=== PATIENT | female | born 1990 | race Caucasian/White ===

== ENCOUNTER 2018-08-09 09:56 | Emergency (ER) | payer OTHER ==
[2018-08-09 11:03] LABS: URINE SOURCE CLEAN C
[2018-08-09 11:04] LABS: BASOPHILE ABSOLUTE 0.1 Th/cumm (0-0.2); EOSINOPHILE ABSOLUTE 0.1 Th/cmm (0.1-0.4); HEMATOCRIT 27.2 % (41.0-60); LYMPHOCYTE ABSOLUTE 1.4 Th/cmm (1.5-3.0); MEAN CORPUSCULAR HEMOGLOBIN 19.4 pg (27.0-31.0); MONOCYTE ABSOLUTE 0.3 Th/cmm (0.3-1.0); RED CELL DISTRIBUTION WIDTH 16.5 % (11.5-20.0)
--- NOTE | 2018-08-09 11:04 | ED Physician Chart ---
ED Chief Complaint/HPI - Patient Information Date Seen:: 08/09/18 Time Seen:: 10:30 Chief Complaint:: abdominal pain History of Present Illness:: this is a 27 yo female with epigastric tenderness, nausea, vomiting for 24 hrs. she is unsure whether she is . she denies any previous surgery or other illnesses. Allergies:: Allergies Allergy/AdvReac Type Severity Reaction Status Date / Time No Known Allergies Allergy Verified 08/09/18 10:17 Vitals:: Vital Signs - 8 hr 08/09/18 10:17 Temp 97.9 F HR 77 RR 18 BP 101/76 O2 Sat % 99 Historian:: Patient Review:: Nurse's Note Reviewed ED Review of Systems - Review of Systems General/Constitutional: No fever, No chills, No weight loss, Weakness, No diaphoresis, No edema, No loss of appetite Skin: No skin lesions, No rash, No bruising Head: No headache, No light-headedness Eyes: No loss of vision, No pain, No diplopia ENT: No earache, No nasal drainage, No sore throat, No tinnitus Neck: No neck pain, No swelling, No thyromegaly, No stiffness, No mass noted Cardio Vascular: No chest pain, No palpitations, No PND, No orthopnea, No edema Pulmonary: No SOB, No cough, No sputum, No wheezing GI: Nausea, Vomiting, No diarrhea, Pain, No melena, No hematochezia, No constipation, No hematemesis G/U: No dysuria, No frequency, No hematuria Musculoskeletal: No bone or joint pain, No back pain, No muscle pain Endocrine: No polyuria, No polydipsia Psychiatric: No prior psych history, No depression, No anxiety, No suicidal ideation Hematopoietic: No bruising, No lymphadenopathy Allergic/Immuno: No urticaria, No angioedema Neurological: No syncope, No focal symptoms, No weakness, No paresthesia, No headache, No seizure, No dizziness, No confusion, No vertigo ED Past Medical History - Past Medical History Obtainable: Yes Past Medical History: No significant medical hx Family History: None Social History: Non Smoker, No Alcohol, No Drug Use, Employed Surgical History: None Psychiatricy History: None Medication: Reviewed Family Medical History - Family Member Father Ethnicity: Living Status: Still Living Hx Family Hypertension: Yes ED Physical Exam - Physical Examination General/Constitutional: Awake, Well-developed, well-nourished, Alert, No distress, GCS 15, Non-toxic appearing, Ambulatory Head: Atraumatic Eyes: Lids, conjuctiva normal, PERRL, EOMI Skin: Nl inspection, No rash, No skin lesions, No ecchymosis, Well hydrated, No lymphadenopathy ENMT: External ears, nose nl, Nasal exam nl, Lips, teeth, gums nl Neck: Nontender, Full ROM w/o pain, No JVD, No nuchal rigidity, No bruit, No mass, No stridor Respiratory: Nl effort/Exclusion, Clear to Auscultation, No Wheeze/Rhonchi/Rales Cardio Vascular: RRR, No murmur, gallop, rubs, NL S1 S2 GI: No tenderness/rebounding/guarding (tenderness of the epigastric area.), No organomegaly, No hernia, Normal BS's, Nondistended, No mass/bruits, No McBurney tenderness : No CVA tenderness Extremities: No tenderness or effusion, Full ROM, normal strength in all extremities, No edema, Normal digits & nails Neuro/Psych: Alert/oriented, DTR's symmetric, Normal sensory exam, Normal motor strength, Judgement/insight normal, Mood normal, Normal gait, No focal deficits Misc: Normal back, No paraspinal tenderness ED Septic Shock - . Is Septic Shock (SBP<90, OR Lactate>4 mmol\L) present?: No - <6hrs of presentation: Vital Signs: Vital Signs - 8 hr 08/09/18 10:17 Temp 97.9 F HR 77 RR 18 BP 101/76 O2 Sat % 99
[2018-08-09 11:05] LABS: ALB/GLOB RATIO 1.1 (1.0-1.8); ALBUMIN 4.5 gm/dL (3.7-5.3); ALKALINE PHOSPHATASE 63 U/L (34-104); ANION GAP 16.3 (7.0-16.0); BILIRUBIN,TOTAL 0.5 mg/dL (0.3-1.0); BUN - UREA NITROGEN 16 mg/dL (7-25); CALCIUM SERUM 9.9 mg/dL (8.6-10.3); CARBON DIOXIDE 22.1 mEq/L (21.0-31.0); CHLORIDE 101 mEq/L (98-107); CREATININE - SERUM 0.8 mg/dL (0.6-1.2); GFR AFRICAN-AMERICAN > 60.0 ml/min (>90); GFR NON AFRICAN-AMERICAN > 60.0 ml/min; GLUCOSE 92 mg/dL (70-105); POTASSIUM SERUM 3.4 mEq/L (3.5-5.1); SGOT 16 U/L (13-39); SGPT/ALT 11 U/L (7-52); SODIUM SERUM 136 mEq/L (136-145); TOTAL PROTEIN,SERUM 8.5 gm/dL (6.0-8.3)
[2018-08-09 11:07] LABS: URINE BILIRUBIN NEGATIVE (NEGATIVE); URINE BLOOD NEGATIVE (NEGATIVE); URINE GLUCOSE (UA) NEGATIVE (NEGATIVE); URINE KETONE NEGATIVE (NEGATIVE); URINE LEUKOCYTE ESTERASE NEGATIVE (NEGATIVE); URINE NITRATE NEGATIVE (NEGATIVE); URINE PH 8.5 (4.6 - 8.0); URINE PROTEIN NEGATIVE (NEGATIVE); URINE UROBILINOGEN 0.2 E.U./dL (0.2 - 1.0)
[2018-08-09 11:14] LABS: % BASOPHILS 1.7 % (0.0-2.0); % EOSINOPHILS 1.7 % (0.0-5.0); % LYMPHOCYTES 26.4 % (20.0-50.0); % MONOCYTES 5.3 % (2.0-10.0); % NEUTROPHILS 64.9 % (40.0-80.0); HEMOGLOBIN 8.5 gm/dL (12-16); INR 1.17 (0.5-1.4); MEAN CORPUSCULAR HGB CONC 31.3 pg (28.0-36.0); MEAN PLATELET VOLUME 8.2 fl; NEUTROPHILE ABSOLUTE 3.4 Th/cmm (1.8-8.0); PLATELET COUNT 447 Th/cmm (150-400); PROTHROMBIN TIME (TEST) 12.1 SECONDS (9.5-11.5); RED BLOOD COUNT 4.39 Mil/cmm (3.80-5.10); WHITE BLOOD COUNT 5.3 Th/cmm (4.8-10.8)
[2018-08-09 11:18] LABS: AMPHETAMINE URINE NEGATIVE (NEGATIVE); BARBITURATES URINE NEGATIVE (NEGATIVE); BENZODIAZEPINES QUAL URINE NEGATIVE (NEGATIVE); CANNABINOID THC NEGATIVE (NEGATIVE); COCAINE METABOLITE QUAL URINE NEGATIVE (NEGATIVE); METHADONE URINE NEGATIVE (NEGATIVE); METHAMPHETAMINES QUAL URINE NEGATIVE (NEGATIVE); OPIATES (MORPHINE) QUAL. URINE NEGATIVE (NEGATIVE); PHENCYCLIDINE (PCP) URINE NEGATIVE (NEGATIVE); TRICYCLICS (TCA) QUAL. URINE NEGATIVE (NEGATIVE)
[2018-08-09 11:19] LABS: URINE CLARITY TURBID (CLEAR); URINE COLOR YELLOW; URINE MICROSCOPIC INDICATED? YES
[2018-08-09 11:26] LABS: URINE BACTERIA NONE SEEN /hpf (NONE SEEN); URINE EPITHELIAL CELLS RARE /lpf (FEW); URINE RBC 0-2 /hpf (0-5); URINE WBC 0-2 /hpf (0-5)
[2018-08-09 11:27] LABS: URINE AMORPHOUS SEDIMENT MODERATE PHOSPHATES (NONE SEEN)
[2018-08-09] MEDS ORDERED: Potassium Chloride Elixir 20 mEq /15 mL UDC PO ONE (11:38)
[2018-08-09] MEDS ORDERED: Potassium Chloride Elixir 20 mEq /15 mL UDC ONE (11:42)
--- NOTE | 2018-08-10 11:23 | Diagnostic Imaging Report ---
CT abdomen and pelvis without intravenous contrast Indication: Generalized Abdominal pain Comparison: None, Technique: Axial images were obtained from the lung bases to the bilateral proximal femurs without IV contrast. Coronal reconstructions were made. total DLP: [id number], CTDI9.7 FINDINGS: There may be a pectus deformity of the chest. The Lung bellamy demonstrate minimal hypoventilatory changes. Assessment of the solid organs is limited due to lack of IV contrast. No evidence of focal hepatic lesions. No focal splenic or pancreatic lesions. No evidence of hydronephrosis or focal renal lesions. Bilateral adnexal small cystic changes are seen. Oral contrast from previous procedure within the stomach and small bowel. Moderate stool is noted with nonspecific gas-filled loops of bowel. The appendix is partially visualized and appears to be air filled. No inflammatory changes seen along the right lower quadrant. No free air free fluid. The osseous structures demonstrate no acute abnormalities. IMPRESSION: The appendix is partially visualized and appears to be air-filled. No definite evidence of acute appendicitis at this time Bilateral adnexal fullness, consider follow-up ultrasound. Nonspecific gas-filled bowel loops. Trace free fluid in the pelvis. Possible pectus deformity of the chest, correlate clinically.
== END 2018-08-09 13:41 | disposition home or self-care (01) ==
LOC: ER 09:56
DX: R10.13 Epigastric pain (principal); R11.2 Nausea with vomiting, unspecified
CPT/HCPCS: 36415-UA; 80053-TC; 80307; 81001-TC; 81025-TC; 84443-TC; 84484-TC; 85025-TC; 85610-TC; 85730-TC